=== PATIENT | male | born 1980 | race Caucasian/White ===

== ENCOUNTER 2021-07-28 18:43 | Emergency (ER) | payer OTHER, MEDICAID, SELFPAY ==
[2021-07-28 19:00] VITALS: BP 115/63; PULSE 68; RESP 17; TEMP 36.4; O2SAT 99; BMI 28.0
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
--- NOTE | 2021-07-28 20:45 | PC.NURSE ---
Per , ok to removed c-collar
[2021-07-28 21:48] VITALS: BP 113/64; PULSE 55; RESP 18; TEMP 36.7; O2SAT 98
--- NOTE | 2021-07-28 22:24 | PC.NURSE ---
Late entry: @ 1766 Dr. Penaloza s/w vrad
== END 2021-07-28 21:52 | disposition home or self-care (01) ==
PROVIDERS: Emergency Provider Emergency Medicine; PCP Nurse Practitioner
DX: S16.1XXA Strain of muscle, fascia and tendon at neck level, initial encounter (principal); S23.9XXA Sprain of unspecified parts of thorax, initial encounter; S60.221A Contusion of right hand, initial encounter; V43.62XA Car passenger injured in collision with other type car in traffic accident, initial encounter; Y92.488 Other paved roadways as the place of occurrence of the external cause
CPT/HCPCS: 70450; 70460; 71045; 72125; 72128; 72170; 73110; 73130; 99282

== ENCOUNTER 2021-08-23 07:53 | Outpatient (RCR) | payer OTHER, SELFPAY | END 2021-09-27 15:40 | disposition home or self-care (01) | LOC: PT.CARL 07:53 | PROVIDERS: Visit Provider Orthopaedic Surgery Adult Reconstructive Orthopaedic Surgery | DX: S62.306A Unspecified fracture of fifth metacarpal bone, right hand, initial encounter for closed fracture (principal) | CPT/HCPCS: 97163 ==

== ENCOUNTER 2021-08-31 08:13 | Outpatient (RCR) | payer MEDICAID, SELFPAY | END 2021-09-27 11:46 | disposition home or self-care (01) | LOC: PT.CARL 08:13 | PROVIDERS: PCP Nurse Practitioner; Visit Provider Nurse Practitioner | DX: M54.2 Cervicalgia (principal) | CPT/HCPCS: 97163 ==

== ENCOUNTER 2022-08-15 16:01 | Emergency (ER) | payer MEDICAID, SELFPAY ==
[2022-08-15 16:02] VITALS: BP 125/78; PULSE 62; RESP 18; TEMP 36.8; O2SAT 97; BMI 25.8
--- NOTE | 2022-08-15 16:05 | PC.NURSE ---
UA COLLECTED AT THIS TIME
[2022-08-15 16:16] LABS: Microscopic, Urine URINE MICROSCOPIC (MICROSCOPIC)
[2022-08-15 16:19] LABS: Appearance,Urine CLEAR (Clear); Bilirubin,Urine Negative (Negative); Blood, Urine Negative (Negative); Color,Urine YELLOW (Yellow); Glucose,Urine (UA) Negative (Negative); Ketones,Urine Negative (Negative); Leukocyte Esterase,Urine Negative (Negative); Nitrate,Urine Negative (Negative); Protein,Urine Negative (Negative); Specific Gravity, Urine >= 1.030 (1.005-1.030)
[2022-08-15 16:47] LABS: Squamous Epithelial Cell,Urine Occasional #/hpf (0-5); WBC,Urine Occasional #/hpf (0-3)
[2022-08-15 16:52] LABS: Basophils # 0.1 K/mm3 (0-0.2); Basophils % 1.1 % (0.1-2.0); Chloride 106 mmol/L (98-107); Eosinophils # 0.3 K/mm3 (0.0-0.4); Hematocrit 48.2 % (42.0-52.0); Hemoglobin 16.6 g/dL (14.1-18.0); Lymphocytes # 2.8 K/mm3 (0.7-4.5); Lymphocytes % 28.7 % (10-50); Mean Corpuscular HGB Conc 34.5 g/dL (31.8-35.4); Mean Corpuscular Hemoglobin 31.6 pg (27.0-31.2); Mean Corpuscular Volume 91.4 fl (80-94); Mean Platelet Volume 8.7 fl (7.4-10.4); Monocytes # 0.7 K/mm3 (0.1-1.0); Monocytes % 6.9 % (1.7-9.3); Neutrophils # 5.9 K/mm3 (1.8-7.8); Neutrophils % 60.3 % (37.0-80.0); Platelet Count 224 K/mm3 (142-424); Potassium 3.8 mmoL/L (3.5-5.1); Red Blood Count 5.27 M/mm3 (4.60-6.20); Red Cell Distribution Width 13.7 % (11.5-17.5); Sodium 141 mmol/L (136-145); White Blood Count 9.9 K/mm3 (4.8-10.8)
[2022-08-15 16:54] LABS: Blood Urea Nitrogen 12 mg/dl (9-20); Creatinine Clearance Estimated 140 mL/min (50-200); Estimated Glomerular Filt Rate 107 ml/min (>60); GFR (African American) 129 ML/MIN (>60)
--- NOTE | 2022-08-15 16:54 | PC.NURSE ---
ED MD AT BEDSIDE FOR EVALUATION
[2022-08-15 16:55] LABS: Alanine Aminotransferase 50 U/L (12-78); Albumin Level 4.6 g/dl (3.5-5.0); Albumin/Globulin Ratio 1.4 (1.1-1.8); Alkaline Phosphatase 122 U/L (38-126); Anion Gap 11.8 mEq/L (5-15); Aspartate Amino Transferase 56 U/L (17-59); Bilirubin,Total 0.5 mg/dl (0.2-1.3); Calcium 8.1 mg/dl (8.4-10.2); Carbon Dioxide 27 mmol/L (22.0-30.0); Globulin 3.2 g/dL (1.3-3.2); Glucose 90 mg/dl (74-100); Total Protein,Serum 7.8 g/dl (6.3-8.2)
--- NOTE | 2022-08-15 16:57 | CT_ITS ---
PROCEDURE INFORMATION: Exam: CT Abdomen And Pelvis With Contrast Exam date and time: 08/15/2022 5:27 PM Age: 42 years old Clinical indication: Abdominal pain; Localized; Left lower quadrant (llq); Additional info: Llq pain, nausea, bloody stool TECHNIQUE: Imaging protocol: Computed tomography of the abdomen and pelvis with contrast. Radiation optimization: All CT scans at this facility use at least one of these dose optimization techniques: automated exposure control; mA and/or kV adjustment per patient size (includes targeted exams where dose is matched to clinical indication); or iterative reconstruction. Contrast material: ISOVUE; Contrast volume: 70 ml; Contrast route: IV; COMPARISON: CT ABDOMEN PELVIS WO CON 01/21/2020 1:10 AM FINDINGS: Liver: Normal. No mass. Gallbladder and bile ducts: Normal. No calcified stones. No ductal dilation. Pancreas: Normal. No ductal dilation. Spleen: Normal. No splenomegaly. Adrenal glands: Normal. No mass. Kidneys and ureters: No hydronephrosis or stone. Stomach and bowel: No diverticulitis. No bowel obstruction or evidence of appendicitis. Appendix: Normal appendix. Intraperitoneal space: Unremarkable. No free air. No significant fluid collection. Vasculature: Unremarkable. No abdominal aortic aneurysm. Lymph nodes: Unremarkable. No enlarged lymph nodes. Urinary bladder: Unremarkable as visualized. Reproductive: Unremarkable as visualized. Bones/joints: Unremarkable. No acute fracture. Soft tissues: Unremarkable. Other findings: No other acute pathology seen. As above. IMPRESSION: 1. No diverticulitis. No bowel obstruction or evidence of appendicitis. 2. No other acute pathology seen. As above.
--- NOTE | 2022-08-15 16:58 | HMH.EDGENADL ---
Discharge Plan Disposition Patient Disposition: Home, Self-Care Condition: Good Prescriptions Prescriptions: New diclofenac potassium 50 mg tablet 50 mg PO TID PRN (Reason: pain) Qty: 30 0RF cyclobenzaprine 10 mg tablet 10 mg PO TID PRN (Reason: muscle spasm) Qty: 20 0RF Referrals Follow up/Referrals: Gem Hung APRN [Primary Care Provider] - See instructions Activity Restrictions/Add. Instructions Additional Instructions/Restrictions: Follow-up with your primary care provider for consideration of outpatient physical therapy and or pain management. Avoid heavy lifting and straining. Ice to the affected area as needed for discomfort. Discharge ED Provider: Patrick Abreu General Adult HPI General Chief complaint: PAIN Stated complaint: BACK AND RIGHT SIDED PAIN Time Seen by Provider: 08/15/22 16:50 Mode of Arrival: Ambulatory Source of Information: Patient Limitations: No Limitations Description of Symptoms (Recalled from ER Triage Doc. by RN): PT REPORTS LEFT LOW BACK PAIN THAT RADIATES TO GROIN X 4 MONTHS. REPORTS BLOOD IN STOOL TODAY AND INTERMITTENTLY OVER A COUPLE OF WEEKS History of Present Illness HPI narrative: The patient presents with a 4-month history of left flank pain. The pain is gotten worse in the last few days which is what has prompted him to come to the emergency department reportedly. He also states that he noticed some blood this morning with a bowel movement. He states the pain does radiate into the left groin area although he denies pain in the testicles. Is been no vomiting or diarrhea. He describes the pain as moderate and worse with positional changes. Related Data Previous Rx's Medication Instructions Recorded cyclobenzaprine 10 mg tablet 10 mg PO TID PRN muscle spasm #20 08/15/22 tabs diclofenac potassium 50 mg tablet 50 mg PO TID PRN pain #30 tabs 08/15/22 Allergies Allergy/AdvReac Type Severity Reaction Status Date / Time No Known Allergies Allergy Verified 04/24/21 09:31 [facility] Social History Smoking Status: Current every day smoker tobacco type: cigarettes packs per day: 1 alcohol intake: never current occupational status: employed Travel in the last 8 weeks: None household members: significant other and children housing: house ROS Obtained: Yes All systems reviewed & no additional complaints except as documented Physical Exam General General appearance: alert and in no apparent distress Head Head exam: atraumatic Eye Eye exam: Present normal appearance ENT ENT exam: Present normal exam and normal oropharynx Neck Neck exam: Present normal inspection Chest Chest inspection: Present normal inspection and symmetric chest wall rise Respiratory Respiratory exam: Present normal lung sounds bilaterally and respiratory distress Cardiovascular Cardiovascular exam: Present regular rate and normal rhythm Abdominal Exam Abdominal exam: Present soft; Absent tenderness Back Exam Back exam: Present normal inspection (There is left lumbar paraspinous muscular tenderness extending into the left flank area. There is no CVA tenderness per se.) Neurological Exam Neurological exam: Present alert and oriented X3 Psychiatric Psychiatric exam: Present normal affect Skin Skin exam: Present warm and dry Lymphatic Lymphatic Findings: no adenopathy Medical Decision Making Beto Inquiry Pt receiving controlled substance: No Vital Signs: 08/15/22 16:02 Temperature 98.3 F Temperature Source Oral Pulse Rate [Radial] 62 Respiratory Rate 18 Blood Pressure [Right Arm] 125/78 Blood Pressure Mean [Right Arm] 93 Blood Pressure Source [Right Arm] Automatic Cuff Blood Pressure Position [Right Arm] Sitting 02 Sat by Pulse Oximetry 97 Oxygen Delivery Method Room Air Lab Data Lab Results 08/15/22 16:07: Urine Color Yellow, Urine Appearance Clear, Urine pH 6.0, Ur Specific Thayer >= 1.030, Urin
--- NOTE | 2022-08-15 17:23 | PC.NURSE ---
PT TO CT AT THIS TIME
--- NOTE | 2022-08-15 18:24 | PC.NURSE ---
ROUNDED ON PT. PT REQUESTING TO KNOW HOW MUCH LONGER. INSTRUCTED THAT CT RESULTS ARE PENDING. PT REQUESTS TO STEP OUTSIDE. INSTRUCTED THAT A PT HE CANNOT LEAVE. PT STATES THAT HES JUST GONNA LEAVE INFORMED PT THAT WE ARE AWAITING CT RESULTS. NOTIFIED
[2022-08-15 18:52] VITALS: BP 120/81; PULSE 67; RESP 18; TEMP 36.8; O2SAT 98
--- NOTE | 2022-08-16 09:36 | PC.NURSE ---
pharmacist from [facility] called and stated pt medication was not on medicare list and wanted to substitute medication. told pharmacy i would speak to provider on shift for verification. pharmacy states they will call back
== END 2022-08-15 18:54 | disposition home or self-care (01) ==
PROVIDERS: Emergency Provider Emergency Medicine; PCP Nurse Practitioner
DX: M54.9 Dorsalgia, unspecified (principal); Z72.0 Tobacco use
CPT/HCPCS: 74177; 80053; 81001; 85025; 99284; Q9967

== ENCOUNTER → 2022-12-05 11:47 | Outpatient (CLI) | payer MEDICAID, SELFPAY ==
--- NOTE | 2022-12-05 11:55 | XR_ITS ---
FINAL REPORT CLINICAL HISTORY: Right shoulder pain FINDINGS: RIGHT SHOULDER 3 views were obtained. There is no acute fracture or dislocation. The joint spaces are intact. There is no soft tissue abnormality. IMPRESSION: No acute bony abnormality. Reviewed, Interpreted and Dictated by Sujatha Guerra MD Transcribed by Ashlyn Holly Authenticated and [facility]
== END ==
PROVIDERS: PCP Pediatrics; Visit Provider Nurse Practitioner Family
DX: M25.511 Pain in right shoulder (principal)
CPT/HCPCS: 73030

== ENCOUNTER 2023-01-15 16:00 | Outpatient (RCR) | payer OTHER, SELFPAY ==
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
== END 2023-02-19 08:30 | disposition home or self-care (01) ==
LOC: PT 16:00
PROVIDERS: PCP Pediatrics; Visit Provider Internal Medicine Adolescent Medicine
DX: M54.50 Low back pain, unspecified (principal)
CPT/HCPCS: 97010; 97014; 97110; 97140; 97163; 97164; G0283

== ENCOUNTER 2023-06-08 13:41 | Observation (INO) | payer MEDICAID, SELFPAY ==
[2023-06-08] VITALS (8 sets, daily range): BP systolic 110–135; BP diastolic 62–81; PULSE 55–77; RESP 16–18; TEMP 36.6–37; O2SAT 97–99; BMI 25.8; BMI 24.4
--- NOTE | 2023-06-08 13:47 | ECG_ITS ---
APPROVED REPORT Exam: Resting ECG HR:72 bpm ECG Measurements Heart Rate 72 AXES IN 127 P 5 QRSd 134 QRS 91 QT 386 T 34 QTc 411 Conclusion SINUS RHYTHM BORDERLINE RIGHT AXIS DEVIATION [QRS AXIS > 90] INTRAVENTRICULAR CONDUCTION DELAY [130+ ms QRS DURATION] ABNORMAL ECG UNCONFIRMED REPORT Electronically signed by : Gerald Lopez MD 06/08/2023 19:22:46
--- NOTE | 2023-06-08 14:06 | XR_ITS ---
PROCEDURE INFORMATION: Exam: XR Chest Exam date and time: 06/08/2023 2:07 PM Age: 43 years old Clinical indication: Shortness of breath; Additional info: SOA, lightheaded TECHNIQUE: Imaging protocol: Radiologic exam of the chest. Views: 1 view. COMPARISON: CR XR CHEST AP 07/28/2021 7:59 PM FINDINGS: Lungs: Unremarkable. No consolidation. Pleural spaces: Unremarkable. No pleural effusion. No pneumothorax. Heart/Mediastinum: Unremarkable. No cardiomegaly. Bones/joints: Unremarkable. IMPRESSION: No acute findings.
[2023-06-08 14:14] LABS: Basophils % 0.5 % (0.1-2.0); Eosinophils # 0.1 K/mm3 (0.0-0.4); Hematocrit 46.8 % (42.0-52.0); Hemoglobin 15.7 g/dL (14.1-18.0); Lymphocytes # 1.8 K/mm3 (0.7-4.5); Lymphocytes % 25.6 % (10-50); Mean Corpuscular HGB Conc 33.5 g/dL (31.8-35.4); Mean Corpuscular Hemoglobin 30.4 pg (27.0-31.2); Mean Corpuscular Volume 90.8 fl (80-94); Mean Platelet Volume 8.8 fl (7.4-10.4); Monocytes # 0.6 K/mm3 (0.1-1.0); Monocytes % 9.1 % (1.7-9.3); Neutrophils # 4.4 K/mm3 (1.8-7.8); Neutrophils % 62.9 % (37.0-80.0); Platelet Count 174 K/mm3 (142-424); Red Blood Count 5.16 M/mm3 (4.60-6.20)
[2023-06-08 14:24] LABS: Albumin Level 4.4 g/dl (3.5-5.0); Albumin/Globulin Ratio 1.5 (1.1-1.8); Alkaline Phosphatase 127 U/L (38-126); Anion Gap 9.4 mEq/L (5-15); Aspartate Amino Transferase 550 U/L (17-59); Bilirubin,Total 1.6 mg/dl (0.2-1.3); Blood Urea Nitrogen 14 mg/dl (9-20); Calcium 8.7 mg/dl (8.4-10.2); Carbon Dioxide 28 mmol/L (22.0-30.0); Chloride 105 mmol/L (98-107); Creatinine Clearance Estimated 123 mL/min (50-200); Estimated Glomerular Filt Rate 93 ml/min (>60); GFR (African American) 112 ML/MIN (>60); Glucose 111 mg/dl (74-100); Potassium 3.4 mmoL/L (3.5-5.1); Sodium 139 mmol/L (136-145); Total Protein,Serum 7.4 g/dl (6.3-8.2)
[2023-06-08 14:30] LABS: Alanine Aminotransferase 935 U/L (12-78)
[2023-06-08 14:41] LABS: T4 (Thyroxine) 17.7 ug/dl (5.53-11.0)
[2023-06-08 14:44] LABS: Troponin I < 0.01 ng/ml (0.00-0.034)
--- NOTE | 2023-06-08 14:45 | PC.NURSE ---
Made attending aware of critical lab values. No new orders
--- NOTE | 2023-06-08 14:46 | PC.NURSE ---
Rounded on patient; no needs at this time.
--- NOTE | 2023-06-08 14:50 | CT_ITS ---
PROCEDURE INFORMATION: Exam: CT Abdomen And Pelvis With Contrast Exam date and time: 06/08/2023 3:05 PM Age: 43 years old Clinical indication: Screening exam; Patient HX: C/O nausea x 1 month, elevated liver enzymes, acute hepatitis; Additional info: Acute hepatitis and weakness TECHNIQUE: Imaging protocol: Computed tomography of the abdomen and pelvis with contrast. Radiation optimization: All CT scans at this facility use at least one of these dose optimization techniques: automated exposure control; mA and/or kV adjustment per patient size (includes targeted exams where dose is matched to clinical indication); or iterative reconstruction. Contrast material: ISOVUE; Contrast volume: 70 ml; Contrast route: IV; REPORTING DATA: Count of CT and Cardiac NM exams in prior 12 months: This patient has received [address] and 0 known cardiac nuclear medicine studies in the 12 months prior to the current study. COMPARISON: CT ABDOMEN PELVIS W CON 08/15/2022 5:27 PM FINDINGS: Liver: Mild periportal edema. No focal hepatic lesion. Normal hepatic parenchyma. Gallbladder and bile ducts: Normal. No calcified stones. No ductal dilation. Pancreas: Normal. No ductal dilation. Spleen: Normal. No splenomegaly. Adrenal glands: Normal. No mass. Kidneys and ureters: Normal. No hydronephrosis. Stomach and bowel: Unremarkable. No obstruction. No mucosal thickening. Appendix: No evidence of appendicitis. Intraperitoneal space: Unremarkable. No free air. No significant fluid collection. Vasculature: Unremarkable. No abdominal aortic aneurysm. Lymph nodes: Unremarkable. No enlarged lymph nodes. Urinary bladder: Unremarkable as visualized. Reproductive: Unremarkable as visualized. Bones/joints: Unremarkable. No acute fracture. Soft tissues: Unremarkable. IMPRESSION: Mild periportal edema. No focal hepatic lesion. Normal hepatic parenchyma.
--- NOTE | 2023-06-08 14:54 | PC.NURSE ---
Annalee in lab notified of lipase add on.
[2023-06-08 14:55] LABS: Thyroid Stimulating Hormone 0.81 uIU/mL (0.465-4.68)
--- NOTE | 2023-06-08 14:56 | HMH.EDGENADL ---
Discharge Plan Disposition Patient Disposition: Admitted Condition: Good Chief Complaint: Dizziness Prescriptions Prescriptions: No Action No Known Home Medications Referrals Follow up/Referrals: Pam Domínguez DO [Primary Care Provider] - See instructions Clinical Impressions Clinical Impression: Acute hepatitis Discharge ED Provider: Patrick Wagner General Adult HPI General Chief complaint: Dizziness Stated complaint: Light headed, weakness Time Seen by Provider: 06/08/23 13:51 Mode of Arrival: Ambulatory Source of Information: Patient Limitations: No Limitations Description of Symptoms (Recalled from ER Triage Doc. by RN): 43 M presents from work c/o persistent dizziness, headache, lightheadedness, and feeling puny for approximately 3 hours. He reports he had a breakfast sandwich and a pepsi this morning, began working, and this all occurred suddenly. Patient denies chest pain, SOA, other focal neurological deficits. He denies any medical history or daily medications. History of Present Illness HPI narrative: This a 43-year-old male with now relevant medical history presenting with general malaise. Patient states that about 3 hours prior to arrival, he was at work lifting and exerting himself when he had an acute feeling of weakness, lightheadedness. Nausea without vomiting, no diaphoresis or shortness of breath. Denying chest pain, abdominal pain, or any other symptoms at this time, just generally feeling unwell. Able to tolerate p.o. intake today without issue. No recent travel, medications, or any environmental exposures Related Data Home Medications Medication Instructions Recorded Confirmed No Known Home Medications 06/08/23 06/08/23 Allergies Allergy/AdvReac Type Severity Reaction Status Date / Time No Known Allergies Allergy Verified 04/24/21 09:31 [facility] Disclaimer: The information contained in this section may have been updated after the patient was seen, as this information can be updated by other users. Medical History (Updated 06/08/23 @ 16:21 by Patrick Wagner MD) No significant past medical history Surgical History (Updated 06/08/23 @ 13:55 by Mulugeta Harrison, KENYATTA) No history of previous surgery Family History (Updated 06/08/23 @ 13:55 by Mulugeta Harrison RN) Other No significant family history Social History Smoking Status: Current every day smoker tobacco type: cigarettes packs per day: 1 alcohol intake: never current occupational status: employed Travel in the last 8 weeks: None household members: significant other and children housing: house ROS Obtained: Yes All systems reviewed & no additional complaints except as documented Physical Exam General General appearance: alert and in no apparent distress Respiratory Respiratory exam: Present normal lung sounds bilaterally; Absent respiratory distress Cardiovascular Cardiovascular exam: Present regular rate and normal rhythm Abdominal Exam Abdominal exam: Present soft, tenderness and Abbott's sign; Absent guarding, rebound or rigidity Neurological Exam Neurological exam: Present alert Medical Decision Making Medical Records Medical records reviewed: Yes I reviewed the patient's medical records. Beto Inquiry Pt receiving controlled substance: No Beto was queried for this patient: No Vital Signs: 06/08/23 13:41 06/08/23 14:00 06/08/23 14:30 Temperature 98.6 F Temperature Source Oral Pulse Rate 75 68 Pulse Rate [Left] 77 Respiratory Rate 16 Blood Pressure 118/80 115/62 Blood Pressure [Right Arm] 135/77 Blood Pressure Mean 90 79 Blood Pressure Mean [Right Arm] 96 Blood Pressure Source [Right Arm] Automatic Cuff Blood Pressure Position [Right Arm] Sitting 02 Sat by Pulse Oximetry 97 99 97 Oxygen Delivery Method Room Air Room Air 06/08/23 15:00 06/08/23 15:31 06/08/23 16:00 [place]
[2023-06-08 15:08] LABS: Lipase 47 U/L (23-300)
--- NOTE | 2023-06-08 16:20 | PC.NURSE ---
SWAB PT FOR ADMISSION, UNHOOKED SO HE COULD USE RESTROOM, GAVE PT WARM BLANKET AND HE IS NO LAYING IN BED, CALL LIGHT AT BS
[2023-06-08 16:25] LABS: Coronavirus 19, PCR Not Detected (NotDetected); Influenza A, PCR Not Detected (NotDetected); Influenza B, PCR Not Detected (NotDetected)
[2023-06-08 16:49] LABS: Microscopic, Urine URINE MICROSCOPIC (MICROSCOPIC)
[2023-06-08 16:51] LABS: Appearance,Urine CLEAR (Clear); Bilirubin,Urine Negative (Negative); Blood, Urine Negative (Negative); Color,Urine YELLOW (Yellow); Glucose,Urine (UA) Negative (Negative); Ketones,Urine Negative (Negative); Leukocyte Esterase,Urine Negative (Negative); Nitrate,Urine Negative (Negative); Protein,Urine Negative (Negative)
--- NOTE | 2023-06-08 16:53 | PC.NURSE ---
PT RESTING IN BED NOTHING NEEDED AT THIS TIME,CALL LIGHT AT BS
[2023-06-08 16:59] LABS: Prothrombin Time 12.8 seconds (10.1-12.5)
[2023-06-08 17:01] LABS: Lactic Acid 0.5 mmol/L (0.7-2.1)
[2023-06-08 17:03] LABS: Barbiturates Screen,Urine Negative ng/ml (<200)
[2023-06-08 17:04] LABS: Benzodiazepines Screen,Urine Negative ng/ml (<200)
[2023-06-08 17:05] LABS: Amphetamine/Metha Screen,Urine Negative ng/ml (<1000); Cocaine Screen,Urine Negative ng/ml (<300)
[2023-06-08 17:08] LABS: Opiate Screen,Urine Negative ng/ml (<300); Phencyclidine Screen,Urine Negative ng/ml (<25)
[2023-06-08 17:14] LABS: Methadone Screen,Urine Negative ng/ml (<300)
--- NOTE | 2023-06-08 17:15 | PC.NURSE ---
ROUNDED ON PT NOTHING NEEDED AT THIS TIME, CALL LIGHT AT BS
[2023-06-08 17:30] LABS: Cannabinoid Screen,Urine Positive ng/ml (<50)
--- NOTE | 2023-06-08 18:45 | PC.NURSE ---
Report to KENYATTA Duncan-- Waiting for 2nd floor transport
--- NOTE | 2023-06-08 19:24 | PC.NURSE ---
Pt arrived to the floor via wheelchair @ 192
--- NOTE | 2023-06-08 19:47 | EXP.HPDC ---
General Admission date:: 06/08/23 Discharge date: 06/08/23 *Admission Date: 06/08/23 *Chief complaint: Weakness and fatigue *History of present illness: 43-year-old male with history of hepatitis C without previous treatment secondary to IV drug abuse that stopped in 2015 who came to the ER because of for 5 hours of extreme weakness and fatigue. 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 He has noted that over the past month he had a lot of nausea, 1 episode of vomiting but no other stool changes, rash or other problems, no weight loss or jaundice. In the ER he was found to have transaminase elevation into the 500 range. INR was not elevated. Bilirubin and alkaline phosphatase were at the upper limits of normal but he had no stigmata of obstruction. Bedside liver ultrasound showed no evidence of gallbladder inflammation or stone, and CT scan showed periportal inflammation but no evidence of obstruction and no other abdominal problems. He was admitted for observation for IV fluids and further diagnostic testing. [facility] Disclaimer: The information contained in this section may have been updated after the patient was seen, as this information can be updated by other users. Medical History (Updated 06/08/23 @ 16:38 by Mulugeta Harrison RN) Hepatitis C Surgical History (Updated 06/08/23 @ 13:55 by Mulugeta Harrison RN) No history of previous surgery Family History (Updated 06/08/23 @ 13:55 by Mulugeta Harrison RN) No significant family history Social History Smoking Status: Current every day smoker tobacco type: cigarettes packs per day: 1 alcohol intake: never current occupational status: employed Travel in the last 8 weeks: None household members: significant other and children housing: house Review of Systems Review of Systems Review of systems:: pertinent systems reviewed and negative unless documented below Exam Data for Last 24 hours Vital signs and Labs for Last 24 Hours: Temp Pulse Resp BP Pulse Ox O2 Del Method 97.8 F 55 L 18 135/66 99 Room Air 06/08/23 19:31 06/08/23 19:31 06/08/23 19:31 06/08/23 19:31 06/08/23 19:31 06/08/23 19:31 Laboratory Results - last 24 hr 06/08/23 13:24: WBC 7.0, RBC 5.16, Hgb 15.7, Hct 46.8, MCV 90.8, MCH 30.4, MCHC 33.5, RDW 14.0, Plt Count 174, MPV 8.8, Neut % (Auto) 62.9, Lymph % (Auto) 25.6, [place] % (Auto) 9.1, Eos % (Auto) 2.0, Baso % (Auto) 0.5, Neut # (Auto) 4.4, Lymph # (Auto) 1.8, [place] # (Auto) 0.6, Eos # (Auto) 0.1, Baso # (Auto) 0.0, Sodium 139, Potassium 3.4 L, Chloride 105, Carbon Dioxide 28, Anion Gap 9.4, BUN 14, Creatinine 0.90, Estimated Creat Clear 123, Estimated GFR 93, Est GFR ( Amer) 112, Glucose 111 H, Calcium 8.7, Magnesium 2.0, Total Bilirubin 1.6 H, AST 550 H*, ALT 935 H*, Alkaline Phosphatase 127 H, Troponin I < 0.01, Total Protein 7.4, Albumin 4.4, Globulin 3.0, Albumin/Globulin Ratio 1.5, TSH 0.81, Thyroxine (T4) 17.7 H 06/08/23 13:50: PT 12.8 H, INR 1.20 H, Lipase 47 06/08/23 15:16: Urine Color Yellow, Urine Appearance Clear, Urine pH 6.0, Ur Specific [place] 1.010, Urine Protein Negative, Urine Glucose (UA) Negative, Urine Ketones Negative, Urine Blood Negative, Urine Nitrate Negative, Urine Bilirubin Negative, Urine Urobilinogen 1.0, Ur Leukocyte Esterase Negative, Urine RBC None, Urine WBC None, Ur Squamous Epith Cells None, Urine Bacteria None, Urine Opiates Screen Negative, Urine Methadone Screen Negative, Ur Barbituates Screen Negative, Ur Phencyclidine Scrn Negative, Ur Amphetamines Screen Negative, U Benzodiazepines Scrn Negative, Urine Cocaine Screen Negative, U Marijuana (THC) Screen Positive H 06/08/23 16:15: SARS-CoV-2 (PCR) Not detected, Influenza A Untype (PCR) Not detected, Influenza Type B (PCR) Not detected
--- NOTE | 2023-06-08 20:05 | PC.NURSE ---
Pt arrived to floor, decided to leave due to non smoking policy. MD on unit and made aware, pt discharged per MDs orders. Discharge instructions reviewed with pt. PIV removed.
--- NOTE | 2023-06-08 20:05 | PC.NURSE ---
Pt left the floor @2004 to home
--- NOTE | 2023-06-10 13:02 | CARE MANAGER ---
Attempted post-discharge phone interview, no answer.
--- NOTE | 2023-06-11 10:36 | CARE MANAGER ---
Called and spoke with patient regarding recent discharge. He stated that he is having a lot of pain and nausea, he was at orthopedic appt at time of call. He stated that he plans to go to Dr. Lopez's office today r/t nauea and pain. He had no other questions or concerns at time of call.
[2023-06-13 13:53] LABS: HBsAg Screen Negative (Negative); HCV Ab Reactive (Non Reactive); Hep A Ab, IGM Negative (Negative); Hep B Core Ab, IgM Negative (Negative)
== END 2023-06-08 20:05 | disposition home or self-care (01) ==
LOC: ER 16:36 → 2ND 18:09
PROVIDERS: Admitting Provider Internal Medicine Adolescent Medicine; Emergency Provider Emergency Medicine; PCP Internal Medicine Adolescent Medicine; Visit Provider Internal Medicine Adolescent Medicine
DX: B19.20 Unspecified viral hepatitis C without hepatic coma (principal); F17.210 Nicotine dependence, cigarettes, uncomplicated; R42 Dizziness and giddiness
CPT/HCPCS: 71045; 74177; 80053; 80074; 80305; 81001; 83605; 83690; 83735; 84436; 84443; 84484; 85025; 85610; 87636; 93005; 99285; G0378; J2405; Q9967

== ENCOUNTER → 2023-06-10 08:13 | Outpatient (CLI) | payer MEDICAID, SELFPAY ==
[2023-06-10 08:32] LABS: Basophils % 0.4 % (0.1-2.0); Eosinophils # 0.2 K/mm3 (0.0-0.4); Eosinophils % 2.4 % (0.1-12.0); Hematocrit 53.1 % (42.0-52.0); Lymphocytes # 2.2 K/mm3 (0.7-4.5); Mean Corpuscular Hemoglobin 29.9 pg (27.0-31.2); Mean Corpuscular Volume 93.6 fl (80-94); Mean Platelet Volume 8.7 fl (7.4-10.4); Monocytes # 0.7 K/mm3 (0.1-1.0); Monocytes % 8.1 % (1.7-9.3); Neutrophils # 5.6 K/mm3 (1.8-7.8); Neutrophils % 64.1 % (37.0-80.0); Platelet Count 192 K/mm3 (142-424); Red Blood Count 5.68 M/mm3 (4.60-6.20); Red Cell Distribution Width 14.1 % (11.5-17.5); White Blood Count 8.7 K/mm3 (4.8-10.8)
[2023-06-10 09:08] LABS: Albumin Level 4.8 g/dl (3.5-5.0); Albumin/Globulin Ratio 1.5 (1.1-1.8); Alkaline Phosphatase 150 U/L (38-126); Anion Gap 13.4 mEq/L (5-15); Aspartate Amino Transferase 591 U/L (17-59); Bilirubin,Total 1.8 mg/dl (0.2-1.3); Blood Urea Nitrogen 13 mg/dl (9-20); Calcium 9.4 mg/dl (8.4-10.2); Carbon Dioxide 28 mmol/L (22.0-30.0); Chloride 106 mmol/L (98-107); Estimated Glomerular Filt Rate 82 ml/min (>60); GFR (African American) 99 ML/MIN (>60); Globulin 3.3 g/dL (1.3-3.2); Glucose 100 mg/dl (74-100); Potassium 4.4 mmoL/L (3.5-5.1); Sodium 143 mmol/L (136-145); Total Protein,Serum 8.1 g/dl (6.3-8.2)
[2023-06-10 09:34] LABS: Alanine Aminotransferase 1081 U/L (12-78)
== END ==
PROVIDERS: PCP Internal Medicine Adolescent Medicine; Visit Provider Internal Medicine Adolescent Medicine
DX: B17.9 Acute viral hepatitis, unspecified (principal)
CPT/HCPCS: 36415; 80053; 85025

== ENCOUNTER 2023-10-29 18:38 | Emergency (ER) | payer MEDICAID, SELFPAY ==
[2023-10-29 20:00] VITALS: BP 114/68; PULSE 65; RESP 18; TEMP 37.2; O2SAT 97; BMI 25.8
--- NOTE | 2023-10-29 20:18 | EXP.UTC ---
Discharge Plan Disposition Patient Disposition: Home, Self-Care Condition: Good Prescriptions Prescriptions: New benzonatate [benzonatate] 100 mg capsule 100 mg PO TIDP PRN (Reason: Cough) Qty: 30 0RF ondansetron 4 mg Tablet,Disintegrating 4 mg PO Q8H PRN (Reason: Nausea) Qty: 12 0RF Referrals Follow up/Referrals: Gerald Lopez MD [Primary Care Provider] - See instructions Activity Restrictions/Add. Instructions Additional Instructions/Restrictions: Drink plenty of fluids. Take tylenol or ibuprofen for pain or fever (if you can take these). Take the medications as directed. Follow up with your regular doctor. GO TO THE ER FOR ANY WORSENING SYMPTOMS Clinical Impressions Clinical Impression: Acute viral syndrome Stand Alone Forms Stand Alone Forms: Work/School Release Instructions Patient Instructions: DI for Viral Syndrome Discharge ED Provider: Kayode Hall [facility] General Stated complaint: V/D fever Time Seen by Provider: 10/29/23 20:00 History of Present Illness Provider Complaint: He states that for the past 2 days he has had chills, body aches and low grade fever. Related Data Previous Rx's Medication Instructions Recorded benzonatate 100 mg capsule 100 mg PO TIDP PRN Cough #30 caps 10/29/23 ondansetron 4 mg disintegrating 4 mg PO Q8H PRN Nausea #12 tabs 10/29/23 tablet Allergies Allergy/AdvReac Type Severity Reaction Status Date / Time No Known Allergies Allergy Verified 10/29/23 20:52 [facility] Disclaimer: The information contained in this section may have been updated after the patient was seen, as this information can be updated by other users. Medical History Hepatitis C Surgical History No history of previous surgery Family History Other No significant family history Social History Smoking Status: Current every day smoker tobacco type: cigarettes packs per day: 1 alcohol intake: never current occupational status: employed Travel in the last 8 weeks: None household members: significant other and children housing: house ROS Obtained: Yes All systems reviewed & no additional complaints except as documented Constitutional Constitutional: Reports chills and Reports fever(s) Eyes Eyes: Denies eye discharge ENT Ears, Nose, Mouth, and Throat: Reports as per HPI Cardiovascular Cardiovascular: Denies chest pain Respiratory Respiratory: Denies chest congestion and Reports cough Gastrointestinal Gastrointestingal: Reports nausea; Denies abdominal pain, constipation, cramping, diarrhea or vomiting Musculoskeletal Musculoskeletal: Denies arthralgias Integumentary/Breasts Skin/Breast: Denies rash Neurologic Neurologic: Denies paresthesias Physical Exam General General appearance: alert and in no apparent distress Head Head exam: atraumatic, normocephalic and normal inspection Eye Eye exam: Present normal appearance, PERRL and EOMI ENT ENT exam: Present normal exam, normal oropharynx, mucous membranes moist, TM's normal bilaterally and normal external ear exam Neck Neck exam: Present normal inspection, full ROM and trachea midline; Absent meningismus or lymphadenopathy Chest Chest inspection: Present normal inspection and symmetric chest wall rise; Absent tenderness Respiratory Respiratory exam: Present normal lung sounds bilaterally; Absent respiratory distress Cardiovascular Cardiovascular exam: Present regular rate and normal rhythm; Absent JVD Abdominal Exam Abdominal exam: Present soft and normal bowel sounds; Absent distention, tenderness or guarding Extremities Exam Extremities exam: Present normal inspection, full ROM and normal capillary refill; Absent calf tenderness Back Exam Back exam: Present normal inspection; Absen
[2023-10-29 20:21] LABS: UTC Strep Screen (Rapid) Negative (Negative)
[2023-10-29 20:41] LABS: UTC Influenza A Antigen Negative (Negative); UTC Influenza B Antigen Negative (Negative)
[2023-10-29 21:07] VITALS: BP 114/68; PULSE 65; RESP 18; TEMP 37.2; O2SAT 97
== END 2023-10-29 21:07 | disposition home or self-care (01) ==
PROVIDERS: Emergency Provider Nurse Practitioner Family; PCP Internal Medicine Adolescent Medicine
DX: R05.9 Cough, unspecified (principal); R11.2 Nausea with vomiting, unspecified; R50.9 Fever, unspecified; R19.7 Diarrhea, unspecified; B34.9 Viral infection, unspecified; F17.210 Nicotine dependence, cigarettes, uncomplicated
CPT/HCPCS: 87635; 87804; 87880; 99204; 99212; G0463